=== PATIENT | female | born 1975 | race Two or more races ===

== ENCOUNTER 2024-11-03 14:17 | Emergency (ER) | payer OTHER ==
[~2024-11-03] VITALS: Ht 157.5 cm; Wt 88.5 kg
[2024-11-03] MEDS ORDERED: KETOROLAC TROMETHAMINE 60 MG VIAL IM ONE ×2 (17:00→17:09)
[2024-11-03] MEDS ORDERED: ORPHENADRINE CITRATE 30 MG/ML AMPUL IM ONE (17:00)
[2024-11-03] MEDS ORDERED: NORFLEX100MG PO (17:05)
[2024-11-03] MEDS ORDERED: DICLOFENAC SODI50 MG PO (17:05)
[2024-11-03] MEDS ORDERED: ORPHENADRINE CITRATE 30 MG/ML AMPUL ONE (17:08)
== END 2024-11-03 17:27 | disposition home or self-care (01) ==
LOC: ER 14:26
DX: M62.830 Muscle spasm of back (principal); M62.838 Other muscle spasm